=== PATIENT | female | born 1975 | race Caucasian/White ===

== ENCOUNTER 2021-05-24 20:00 | Emergency (ER) | payer MEDICAID ==
[~2021-05-24] VITALS: Ht 167.6 cm; Wt 77.3 kg
[~2021-05-24 20:00] MED LIST: ASPI-1071 PO
[2021-05-24 20:18] VITALS: BP 143/82
== END 2021-05-25 00:16 | disposition home or self-care (01) ==
LOC: ER 20:01
DX: J34.89 Other specified disorders of nose and nasal sinuses (principal); R09.89 Other specified symptoms and signs involving the circulatory and respiratory systems; Z88.1 Allergy status to other antibiotic agents; Z79.82 Long term (current) use of aspirin; Z79.2 Long term (current) use of antibiotics
CPT/HCPCS: 70160; 70486; 99284

== ENCOUNTER 2025-02-09 15:19 | Outpatient (CLI) | payer MEDICAID ==
--- NOTE | 2025-02-09 16:19 | RADIOLOGY REPORT ---
EXAM: MR MRI C SPINE INDICATION: CERVICALGIA TECHNIQUE: Multiplanar, multisequence imaging of the cervical spine without contrast. COMPARISON: None FINDINGS: [ANATOMY]: Cervical lordosis is maintained. [BONES]: Opposing Modic type 1 endplate degenerative change along the left lateral aspect of C6-7 intervertebral disc space. The vertebral bodies are normal in alignment and marrow signal. [CERVICAL CORD]: No abnormal cervical cord signal. [DISCS]: Mild intervertebral disc height loss. Diffuse disc desiccation. [FACETS]: Unremarkable [OTHER]: There is no prevertebral soft tissue swelling. The visualized paraspinal soft tissues are normal. Multiple likely reactive cervical chain subcentimeter lymph nodes most conspicuous at station 1B and right submandibular station. [C2-C3]: Unremarkable. [C3-C4]: Unremarkable. [C4-C5]: Unremarkable. [C5-C6]: Effacement of the ventral and dorsal thecal sacs at C5-6 with the associated opposing ligamentum flavum buckling. Mild left C5-6 foraminal narrowing at C5-6. [C6-C7]: Effacement of the ventral and dorsal thecal sacs at C6-7 with the associated opposing ligamentum flavum buckling. Mild relative bilateral C6-7 foraminal narrowing. Opposing Modic type 1 endplate degenerative change along the left lateral aspect of C6-7 intervertebral disc space. 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 IMPRESSION: 1. Effacement of the ventral and dorsal thecal sacs at C5-6 and C6-7 with the associated opposing ligamentum flavum buckling. 2. Mild left C5-6 foraminal narrowing and mild bilateral C6-7 foraminal narrowing. 3. Opposing Modic type 1 endplate degenerative change along the left lateral aspect of C6-7 intervertebral disc space.
--- NOTE | 2025-02-09 17:36 | RADIOLOGY REPORT ---
EXAM: MR MRI LUMBAR SPINE CLINICAL HISTORY: LOW BACK PAIN COMPARISON: None TECHNIQUE: MRI of the lumbar spine was performed without contrast. FINDINGS: Vertebral body height is maintained. Vertebral alignment is anatomic. Degenerative endplate changes. The conus medullaris is normal in position and signal intensity. L1-L2: No significant spinal canal or foraminal stenosis. L2-L3: No significant spinal canal or foraminal stenosis. L3-L4: Disc bulge with facet arthropathy. Mild bilateral foraminal stenosis. No significant spinal canal narrowing. L4-L5: Disc bulge with annular fissure at as well as facet arthropathy and ligamentum flavum thickening. Mild bilateral foraminal stenosis. No significant spinal canal narrowing. L5-S1: Disc bulge with facet arthropathy. Mild bilateral foraminal stenosis. No significant spinal canal narrowing. Partially visualized heterogeneously enlarged uterus with diffuse endometrial thickening/intracavitary fluid. IMPRESSION: Degenerative changes. No high-grade spinal canal or foraminal narrowing. Partially visualized heterogeneously enlarged uterus with diffuse endometrial thickening/intracavitary fluid. Recommend dedicated pelvic ultrasound for further evaluation.
== END 2025-02-09 23:59 | disposition home or self-care (01) ==
LOC: MRI02 15:19
PROVIDERS: ATTEND Nurse Practitioner
DX: M51.17 Intervertebral disc disorders with radiculopathy, lumbosacral region (principal); M54.2 Cervicalgia; M54.50 Low back pain, unspecified; M47.27 Other spondylosis with radiculopathy, lumbosacral region; M48.07 Spinal stenosis, lumbosacral region; N85.2 Hypertrophy of uterus; M48.02 Spinal stenosis, cervical region; G96.191 Perineural cyst
CPT/HCPCS: 72141; 72148